=== PATIENT | female | born 1995 | race Caucasian/White ===

== ENCOUNTER 2023-05-20 13:28 | Outpatient (RCR) | payer OTHER, SELFPAY | END 2023-05-20 23:59 | disposition home or self-care (01) | LOC: RPT 13:28 | PROVIDERS: ATTENDING PHYSICIAN Obstetrics & Gynecology; PRIMARYCARE PHYSICIAN Family Medicine | DX: M62.89 Other specified disorders of muscle (principal); R10.2 Pelvic and perineal pain; K59.00 Constipation, unspecified; Z73.6 Limitation of activities due to disability | CPT/HCPCS: 97110; 97530 ==

== ENCOUNTER 2023-07-15 12:07 | Outpatient (RCR) | payer OTHER, SELFPAY | END 2023-07-15 23:59 | disposition home or self-care (01) | LOC: RPT 12:07 | PROVIDERS: ATTENDING PHYSICIAN Obstetrics & Gynecology; PRIMARYCARE PHYSICIAN Family Medicine | DX: M62.89 Other specified disorders of muscle (principal); R10.2 Pelvic and perineal pain; K59.00 Constipation, unspecified; Z73.6 Limitation of activities due to disability | CPT/HCPCS: 97140; 97530 ==

== ENCOUNTER 2023-08-13 15:09 | Outpatient (RCR) | payer OTHER, SELFPAY | END 2023-08-13 23:59 | disposition home or self-care (01) | LOC: RPT 15:09 | PROVIDERS: ATTENDING PHYSICIAN Obstetrics & Gynecology; PRIMARYCARE PHYSICIAN Family Medicine | DX: M62.89 Other specified disorders of muscle (principal); R10.2 Pelvic and perineal pain; K59.00 Constipation, unspecified; Z73.6 Limitation of activities due to disability | CPT/HCPCS: 97140; 97530 ==

== ENCOUNTER 2024-03-19 14:30 | Emergency (ER) | payer OTHER, SELFPAY ==
[2024-03-19 14:44] VITALS: BP 116/70
[2024-03-19 15:11] LABS: % Basophils 0.8 % (0-2); % Eosinophils 0.4 % (0-6); % Immature Granulocytes 1.4 % (0-0.5); % Monocytes 5.2 % (1.7-9.3); % Neutrophils 75.2 % (42.2-75.2); Absolute Basophils 0.1 10^3/uL (0-0.2); Absolute Immature Granulocytes 0.1 10^3/uL (0-0.05); Absolute Lymphocytes 1.8 10^3/uL (1.2-3.4); Absolute Monocytes 0.5 10^3/uL (0.1-0.6); Absolute Neutrophils 7.8 10^3/uL (1.4-6.5); Hematocrit 42.1 % (37.0-47.0); Mean Corp Hgb Conc. 35.6 g/dL (33.0-37.0); Mean Corpuscular Hgb 31.1 pg (27.0-31.0); Mean Corpuscular Volume 87.3 fL (81.0-99.0); Mean Platelet Volume 10.7 fL (7.4-10.4); Nucleated Red Blood Cells % 0 %; Platelet Count 220 10^3/uL (130-400); Red Blood Cell Count 4.82 10^6/uL (4.20-5.40); Red Cell Dist. Width 11.9 % (11.5-14.5); White Blood Cell Count 10.4 10^3/uL (4.8-10.8)
[2024-03-19 15:28] LABS: HCG, Serum Qualitative Screen Negative
[2024-03-19 15:39] LABS: ALT (SGPT) 23 U/L (0-35); AST (SGOT) 22 U/L (14-36); Albumin 4.4 g/dl (3.5-5.0); Alkaline Phosphatase 47 U/L (38-126); Blood Urea Nitrogen 22 mg/dl (7-17); Calcium 9.5 mg/dl (8.4-10.2); Carbon Dioxide 25 mmol/L (22-30); Chloride 101 mmol/L (98-107); Glucose 98 mg/dl (70-99); Potassium 4.4 mmol/L (3.5-5.1); Sodium 136 mmol/L (135-145); Total Bilirubin 0.5 mg/dl (0.2-1.3)
[2024-03-19 16:18] LABS: Total Protein 6.8 g/dl (6.3-8.2); eGFR > 60.00
[2024-03-19] MEDS: NSS 1000 IV (17:32)
[2024-03-19 17:33] VITALS: BMI 27.8
[2024-03-19 17:34] VITALS: BP 119/75
--- NOTE | 2024-03-19 17:34 | ED.GENMED ---
History of Present Illness
General
Chief Complaint: Fainting Sensation
Source: patient
Exam Limitations: none
Time Seen by Provider: 03/19/24 17:11
History of Present Illness
History of Present Illness:
28-year-old otherwise healthy female presents complaining of nearly passing out earlier today. She works as a bridal stylist and today while at work she developed headache nausea palpitations lightheadedness and diaphoresis. She then developed
cramping sensations into both hands feet and around her mouth. She does note freezing heart sensation at times. She denies chest pain. She denies any significant abdominal pain. She does note an ongoing headache over the past month. No leg
swelling or calf pain. No recent extended travel or surgery. Most of the patient's symptoms have improved however she still feels off.
Past History
Past History
ED Past Medical History: Asthma (exercise induced), Psychiatric (Anxiety, Depression, Panic disorder) and Other (Recurrent UTIs, Migraines, IBS, Constipation, Cystitis)
ED Past Surgical History: and Other (Adnoids)
Social History
Tobacco: Non-smoker
Alcohol: Occasional
Personal:
Living: with family
Family History
Family History: CAD and Other (thyroid disorders and breast cancer)
Phy Exam
Physical Exam
Physical Exam:
General: Well-appearing female no acute respiratory distress
HEENT: Normocephalic atraumatic heart: Regular rate and rhythm no murmurs
Lungs: Clear no wheezing or rales
Abdomen soft nontender nondistended no guarding or rebound
Extremities: No cyanosis or edema
Skin: Warm no rash
Course
Orders/Labs/Results
Orders:
Orders
03/19/24
Electrocardiogram (*1) Stat
Reason for Study: Chest Pain
Comment: DONE NO ORDER ENTERED
03/19/24 14:52
Test Result ONCE
03/19/24 15:03
Complete Blood Count/With Diff Urgent
Comprehensive Metabolic Panel Urgent
HCG, Serum Qualitative Screen Urgent
03/19/24 17:25
CT Head W/o Iv Contrast Urgent
Comment:
Reason For Exam: headache
0.9% Sodium Chloride 1000 ml [Nss] 1,000 ml IV BOLUS
03/19/24 18:02
Diphenhydramine [Benadryl] 25 mg IV NOW STA
Prochlorperazine [Compazine] 10 mg IV NOW STA
03/19/24 18:16
Ketorolac [Toradol] 15 mg IV NOW STA
Abnormal Lab Results
03/19/24
15:03
MCH 31.1 H pg
(27.0-31.0)
MPV 10.7 H fL
(7.4-10.4)
Abs Immat Gran (auto) 0.1 H 10^3/uL
(0-0.05)
Absolute Neuts (auto) 7.8 H 10^3/uL
(1.4-6.5)
Immature Gran % 1.4 H %
(0-0.5)
Lymphocytes % 17.0 L %
(20.5-51.1)
BUN 22 H mg/dl
(7-17)
03/19/24 15:03
03/19/24 15:03
Vital Signs
Initial and Last Documented VS:
Initial Vital Signs
Temp Pulse Resp BP Pulse Ox
98 F 93 16 116/70 100
03/19/24 14:44 03/19/24 14:44 03/19/24 14:44 03/19/24 14:44 03/19/24 14:44
Last Documented Vital Signs
Temp Pulse Resp BP Pulse Ox
98 F 69 15 111/79 99
03/19/24 14:44 03/19/24 20:00 03/19/24 20:00 03/19/24 20:00 03/19/24 20:00
MDM/Problems Addressed
Differential Diagnosis Includes:
Patient presents with what sounds like near syncope. Question arrhythmia versus electrolyte abnormality versus vasovagal episode. No chest pain. Vital signs normal. Do not suspect PE
Patient does note ongoing headache which is atypical for her. Question migraine type headache. Will check CT of head.
Fluids ordered.
*Critical Care Note
Total Time (30-74mins, 75-104mins- exclusive of procedures): Not Applicable
Update Note
Update Note:
Workup here without significant finding. CT head negative labs reviewed and are normal. Patient feeling somewhat better after Toradol for her headache. Question possible migraine-like headache causing vasovagal response. No arrhythmias noted on
monitor. Stable for discharge home with follow-up with family doctor.
ED Attending Note
-
Portions of this chart may have been created with voice recognition software.� Occasional wrong word or��sound alike� substitutions may have occurred due to the inherent limitations of voice recognition software.
Discharge Plan
Departure
Patient Disposition: Home (Routine Discharge)
Date of Disposition: 03/19/24
Time of Disposition: 20:10
Patient with high blood pressure during this ER visit?: No
Discharge Problem:
Pre-syncope
Instructions: Migraine in adults, Near Fainting (DC)
Prescriptions:
No Action
polyethylene glycol 3350 [Miralax] 17 gram Powder In Packet
17 g PO DAILY
phenazopyridine [Pyridium] 200 mg Tablet
200 mg PO TID PRN (Reason: URINE SYMPTOMS)
escitalopram oxalate [Lexapro] 20 mg Tablet
20 mg PO HS
Lo Loestrin Fe 1 mg-10 mcg (24)/10 mcg (2) Tablet
1 tab PO HS
ondansetron 4 mg tablet,disintegrating
4 mg PO Q8H PRN (Reason: nausea and vomiting) Qty: 7 0RF
cephalexin 500 mg capsule
500 mg PO BID Qty: 10 0RF
Referrals:
Jovon Walker MD [Family Provider] -
Activity Restrictions/Additional Instructions:
Stay hydrated. Please follow-up with your doctor and consider Holter monitor for ongoing palpitations. Return if needed otherwise
Interventions
Interventions:
*Risk Screen - Suicide Last Done: 03/19/24 17:35
*General Assessment Last Done: 03/19/24 17:35
*Neglect/Abuse Screening Last Done: 03/19/24 17:35
*ED COVID-19 Vaccine History Last Done: 03/19/24 17:35
ED- Cardiac Assessment Last Done: 03/19/24 17:35
ED- Neurological Assessment Last Done: 03/19/24 17:35
Discharge Date and Time
Print Language: FILIPINO
[2024-03-19] MEDS: TORADOL 15 MG IV (18:26)
[2024-03-19 19:47] VITALS: BP 114/77
[2024-03-19 20:00] VITALS: BP 111/79
== END 2024-03-19 20:42 | disposition home or self-care (01) ==
LOC: EMR 14:30
PROVIDERS: Student in an Organized Health Care Education/Training Program; EMERGENCY PHYSICIAN Emergency Medicine; FAMILY PHYSICIAN Family Medicine
DX: R55 Syncope and collapse (principal); R51.9 Headache, unspecified; J45.990 Exercise induced bronchospasm; F41.8 Other specified anxiety disorders; F41.0 Panic disorder [episodic paroxysmal anxiety]; K58.9 Irritable bowel syndrome, unspecified; Z80.3 Family history of malignant neoplasm of breast; Z82.49 Family history of ischemic heart disease and other diseases of the circulatory system; Z83.49 Family history of other endocrine, nutritional and metabolic diseases; Z87.440 Personal history of urinary (tract) infections
CPT/HCPCS: 99284; 96374; 96375; 96361; 70450; 80053; 84703; 85025; 93005

== ENCOUNTER → 2024-06-25 16:40 | Outpatient (REF) | payer OTHER, SELFPAY | LOC: MRI 3T 16:40 | PROVIDERS: ATTENDING PHYSICIAN Surgery; FAMILY PHYSICIAN Family Medicine | DX: Z91.89 Other specified personal risk factors, not elsewhere classified (principal); Z80.3 Family history of malignant neoplasm of breast | CPT/HCPCS: 77049; A9585 ==

== ENCOUNTER → 2024-07-09 09:14 | Outpatient (REF) | payer OTHER, SELFPAY | LOC: RAD 09:14 | PROVIDERS: ATTENDING PHYSICIAN Internal Medicine Gastroenterology; FAMILY PHYSICIAN Family Medicine | DX: R19.7 Diarrhea, unspecified (principal) | CPT/HCPCS: 74018 ==